=== PATIENT | female | born 1970 | race African-American/Black ===

== ENCOUNTER 2019-11-23 22:44 | Emergency (ER) | payer BC ==
[~2019-11-23] VITALS: Ht 165.1 cm; Wt 56.7 kg
[2019-11-23 22:55] VITALS: BP 113/75
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
--- NOTE | 2019-11-23 23:10 | NUR ---
ED Nurse Note: Pt did not want [place] for pain. She states "it is too strong". Will give Tylenol instead.
[2019-11-23] MEDS ORDERED: HYDROcodone/Acetamin 5/325 tab ORAL ONE (23:15)
[2019-11-23] MEDS ORDERED: Acetaminophen 500mg (ES) tab ORAL ONE (23:15)
--- NOTE | 2019-11-23 23:30 | NUR ---
ED Nurse Note: technology assistant bedside for sugar tong splint placement.
[2019-11-23] MEDS ORDERED: HYDROCODON-ACE1 EA15 ORAL (23:32)
[2019-11-23] MEDS ORDERED: IBUPROFEN600 M1 ORAL (23:32)
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
[2019-11-23 23:50] VITALS: BP 117/80
--- NOTE | 2019-11-23 23:50 | NUR ---
ER DISCHARGE NOTE: Patient is cleared to be discharged per ERMD, pt is aox4, on room air, with stable vital signs. pt was given dc and prescription instructions, pt was able to verbalize understanding, pt id band removed. pt is able to ambulate with steady gait. pt took all belongings.
== END 2019-11-23 23:50 | disposition home or self-care (01) ==
LOC: EMR 23:05
DX: S52.125A Nondisplaced fracture of head of left radius, initial encounter for closed fracture (principal); W19.XXXA Unspecified fall, initial encounter; Y92.9 Unspecified place or not applicable
CPT/HCPCS: 29105; 99283